=== PATIENT | male | born 1965 | race Caucasian/White ===

== ENCOUNTER 2018-08-14 02:25 | Emergency (ER) | payer SELFPAY ==
[2018-08-14] MEDS ORDERED: NS 1,000 ML IV ONE (02:27)
--- NOTE | 2018-08-14 02:30 | EDPHY ---
H & P Time Seen by Provider: 08/14/18 02:29 HPI/ROS: HPI CHIEF COMPLAINT: Alcohol Intoxication HISTORY OF PRESENT ILLNESS: 52-year-old male, presents emergency room acute alcohol intoxication. He was found stumbling down the sidewalk. No trauma. EMS reports drank a large amount of alcohol tonight. He arrives emergency room highly intoxicated with alcohol. Unable to obtain history due to alcohol intoxication. Past Medical History: Unknown medical history Past Surgical History: Unknown surgical history Social History: Alcohol this evening. Large amount. Family History: Unknown ROS REVIEW OF SYSTEMS: Limited due to alcohol intoxication Exam Constitutional Intoxicated, triage nursing summary reviewed, vital signs reviewed, Sleepy, smells of alcohol Eyes normal conjunctivae and sclera, horizontal beating nystagmus consistent acute alcohol intoxication, otherwise pupils equal and react to light HENT normal inspection, atraumatic, moist mucus membranes, no epistaxis, neck supple/ no meningismus, no raccoon eyes. Respiratory clear to auscultation bilaterally, normal breath sounds, no respiratory distress, no wheezing. Cardiovascular rate normal, regular rhythm, no murmur, no edema, distal pulses normal. Gastrointestinal soft, non-tender, no rebound, no guarding, normal bowel sounds, no distension, no pulsatile mass. Genitourinary no CVA tenderness. Musculoskeletal no midline vertebral tenderness, full range of motion, no calf swelling, no tenderness of extremities, no meningismus, good pulses, neurovascularly intact. Skin pink, warm, & dry, no rash, skin atraumatic. Neurologic sleepy, intoxicated with alcohol,, alert and oriented x 3, AAOx3, moves all 4 extremities equally, motor intact, sensory intact, CN II-XII intact , , normal vision, normal speech. Psychiatric normal mood/affect. Heme/Lymph/Immune no lymphadenopathy. Differential Diagnosis: Includes but is not limited to in a particular order acute alcohol intoxication, alcohol abuse, dehydration, electrolyte abnormality , nausea vomiting from acute alcohol intoxication Medical Decision Making: Plan for this patient IV establishment IV fluid bolus Zofran as needed for nausea vomiting, watch for worsening condition watch for lethargy, check serum alcohol level, electrolytes, re-evaluate. Re-evaluation: Patient's serum alcohol level [phone]. [phone]: Patient is up ambulatory throughout the emergency room. Stable gait. Clinically sober answers questions appropriately. Has no complaints. Safe for discharge. On an [facility] hold. Source: Patient, EMS Constitutional: Initial Vital Signs Temperature (C) 36.9 C 08/14/18 02:30 Heart Rate 110 H 08/14/18 02:30 Respiratory Rate 20 08/14/18 02:30 Blood Pressure 128/84 H 08/14/18 02:30 O2 Sat (%) 94 08/14/18 02:30 O2 Delivery Mode Room Air Allergies/Adverse Reactions: No Known Allergies Allergy (Unverified 08/14/18 02:30) Home Medications: Medication Instructions Recorded NK [No Known Home Meds] 08/14/18 Medical Decision Making - Data Points Laboratory Results: Laboratory Results 08/14/18 02:30 08/14/18 02:30 08/14/18 08/14/18 02:30 02:30 WBC 7.50 10^3/uL 10^3/uL (3.80-9.50) RBC 5.74 10^6/uL 10^6/uL (4.40-6.38) Hgb 16.9 g/dL g/dL (13.7-17.5) Hct 49.8 % % (40.0-51.0) MCV 86.8 fL fL (81.5-99.8) MCH 29.4 pg pg (27.9-34.1) MCHC 33.9 g/dL g/dL (32.4-36.7) RDW 13.4 % % (11.5-15.2) Plt Count 335 10^3/uL 10^3/uL (150-400) MPV 8.6 fL L fL (8.7-11.7) Neut % (Auto) 46.7 % % (39.3-74.2) Lymph % (Auto) 44.0 % % (15.0-45.0) Duc[place]ne % (Auto) 7.5 % % (4.5-13.0) Eos % (Auto) 0.8 % % (0.6-7.6) Baso % (Auto) 0.7 % % (0.3-1.7) Nucleat RBC Rel Count 0.0 % % (0.0-0.2) Absolute Neuts (auto) 3.51 10^3/uL 10^3/uL (1.70-6.50) Absolute Lymphs (auto) 3.30 10^3/uL H 10^3/uL (1.00-3.00) Absolute Monos (auto) 0.56 10^3/uL 10^3/uL (0.30-0.80) Absolute Eos (auto) 0.06 10^3/uL 10^3/uL (0.03-0.40) Absolute Basos (auto) 0.05 10^3/uL 10^3/uL (0.02-0.10) Absolute Nucleated RBC 0.00 10^3/uL 10^3/uL (0-0.01) Immature Gran % 0.3 % % (0.0-1.1) Immature Gran # 0.02 10^3/uL 10^3/uL (0.00-0.10) Sodium 147 mEq/L H mEq/L (135-145) Potassium 4.4 mEq/L mEq/L (3.3-5.0) Chloride 109 mEq/L mEq/L (97-110) Carbon Dioxide 21 mEq/l L mEq/l (22-31) Anion Gap 17 mEq/L H mEq/L (6-14) BUN 12 mg/dL mg/dL (7-23) Creatinine 1.0 mg/dL mg/dL (0.7-1.3) Estimated GFR > 60 Glucose 109 mg/dL H mg/dL (70-100) Calcium 9.3 mg/dL mg/dL (8.5-10.4) Ethyl Alcohol 354 mg/dL H mg/dL (0-10) Medications Given: Discontinued Medications Sodium Chloride (Ns) 1,000 mls @ 0 mls/hr IV EDNOW ONE; Wide Open PRN Reason: Protocol Stop: 08/14/18 02:28 Last Admin: 08/14/18 02:36 Dose: 1,000 mls Departure - Departure Disposition: Home, Routine, Self-Care Clinical Impression: Alcoholic intoxication Qualifiers: Complication of substance-induced condition: uncomplicated Qualified Code(s): F10.920 - Alcohol use, unspecified with intoxication, uncomplicated Condition: Good Instructions: Alcohol Intoxication (ED), Abuse of Alcohol (ED) Referrals: Patient,NotPresent [Primary Care Provider] - As per Instructions
[2018-08-14 02:46] LABS: PLATELET COUNT 335 10^3/uL (150-400)
[2018-08-14 05:54] VITALS: BP 134/74
== END 2018-08-14 05:46 | disposition home or self-care (01) ==
DX: F10.920 Alcohol use, unspecified with intoxication, uncomplicated (principal); E86.9 Volume depletion, unspecified
CPT/HCPCS: G0480